=== PATIENT | male | born 1995 | race Caucasian/White ===

== ENCOUNTER 2020-08-19 22:15 | Emergency (ER) | payer OTHER ==
[~2020-08-19] VITALS: Ht 180.3 cm; Wt 83.9 kg
[2020-08-19] MEDS ORDERED: REMERON30 MG PO (22:30)
== END 2020-08-19 23:27 | disposition home or self-care (01) ==
LOC: ED 22:15
DX: S01.81XA Laceration without foreign body of other part of head, initial encounter (principal); Y04.8XXA Assault by other bodily force, initial encounter; Z87.891 Personal history of nicotine dependence
CPT/HCPCS: 12011; 99282-25

== ENCOUNTER 2022-03-10 16:34 | Emergency (ER) | payer OTHER ==
[~2022-03-10] VITALS: Ht 180.3 cm; Wt 83.9 kg
[~2022-03-10 16:34] MED LIST: REMERON30 MG PO
[2022-03-10] MEDS ORDERED: ULTRAM50 MG PO (20:48)
== END 2022-03-10 21:00 | disposition home or self-care (01) ==
LOC: ED 16:34
DX: S00.12XA Contusion of left eyelid and periocular area, initial encounter (principal); W06.XXXA Fall from bed, initial encounter; Y92.143 Cell of prison as the place of occurrence of the external cause; Z87.891 Personal history of nicotine dependence
CPT/HCPCS: 70486; 99284-25